=== PATIENT | male | born 1975 | race Caucasian/White ===

== ENCOUNTER → 2017-09-07 | Outpatient (CLI) | payer BC ==
--- NOTE | 2017-09-07 18:50 | CONS ---
CONSULTATION DATE OF SERVICE: 09/07/2017 A 42-year-old gentleman has been evaluated in the sleep center for possible obstructive sleep apnea-hypopnea syndrome. HISTORY OF PRESENT ILLNESS AND SLEEP-WAKE EVALUATION: Patient's usual sleep schedule from 10:00 p.m. to 11:00 p.m. until he wakes up at 3:00 a.m. and then he tries to sleep again and finally he wakes up at 6:30. On the weekend, he has about the same sleep schedule. No problem with falling asleep, although has TV set in bedroom. He sleeps on the side position, does not like to sleep on the back. He has loud snoring, witnessed by his , episodes of stopped breathing during sleep. He wakes up with dry mouth, palpitations, sweating 3 times. In the morning, he wakes up tired. [place] Sleepiness Scale increased to 10. He worries about his sleep, his irritability and anxiety. PAST MEDICAL HISTORY: Positive for hypertension. ALLERGIES: PEANUTS, POSITIVE HISTORY OF AN ANAPHYLACTIC REACTION. PAST SURGICAL HISTORY: [place] tooth removed. MEDICATIONS: 1. Lisinopril. 2. Belsomra. 3. Has EpiPen. REVIEW OF SYSTEMS: Multiple awakenings from sleep, sleepiness during the day. FAMILY HISTORY: Hypertension, angina, heart problems, hyperlipidemia, asthma, bronchitis, sleep apnea, snoring, cancer, ulcers, diabetes. PHYSICAL EXAMINATION: GENERAL: A gentleman without distress. VITAL SIGNS: BP 136/84, HR 92, RR 14, height 5 feet 9-1/2 inches, weight 263.2, BMI 38.2, neck 17 inches in circumference. Temperature 97.9, oxygen saturation room air 95%. HEENT: PERRLA, EOMI, evaluation of oropharynx showed tongue protrudes midline, low position of soft palate, restriction of nasal breathing. Neck Supple, no JVD. Thyroid is not palpable. LUNGS: Clear to percussion and to auscultation. Good air exchange. No wheezing or rhonchi. HEART: S1, S2 regular. No murmurs, gallops, or rubs. ABDOMEN: Obese, soft and nontender. Bowel sounds are present. No organomegaly appreciated. EXTREMITIES: No clubbing or cyanosis. BICYCLE FITTER: Awake, alert, and oriented X3. Cranial nerves 2 to 7 intact. There is no fasciculation or atrophy. noted. No focal deficits observed. IMPRESSION: 1. Snoring, witnessed episodes of stopped breathing during sleep, low position of soft palate, excessive daytime sleepiness, wide neck, restriction of nasal breathing, obstructive sleep apnea-hypopnea syndrome. 2. Obesity, body mass index, body mass index 38.2. 3. Restriction of nasal breathing. 4. Hypertension. 5. Allergies. PLAN: 1. Home sleep apnea test for confirming obstructive sleep apnea-hypopnea syndrome. 2. Polysomnography for evaluation of patient's breathing during sleep. 3. CPAP/BiPAP titration if sleep study confirms obstructive sleep apnea-hypopnea syndrome. 4. Preferable position during sleep on the side. 5. No driving if patient feels any sleepiness. Patient is aware of civil and criminal liability for unsafe driving. 6. I will see patient for follow up visit to explain results of testing and following plan. Thank you very much for referring this patient for consultation. Sincerely, Bijan Avitia MD, PhD, FAASM Diplomat of [employer] Specialist of [facility] [place] MMODL / FRANCOISEN: [id number] /
== END | disposition home or self-care (01) ==
LOC: SLEEP 16:08
PROVIDERS: ATTEND Internal Medicine
DX: G47.33 Obstructive sleep apnea (adult) (pediatric) (principal); I10 Essential (primary) hypertension; T78.40XA Allergy, unspecified, initial encounter; E66.9 Obesity, unspecified; Z68.38 Body mass index [BMI] 38.0-38.9, adult; Z91.010 Allergy to peanuts; Z79.899 Other long term (current) drug therapy
CPT/HCPCS: 99211

== ENCOUNTER → 2018-01-12 | Outpatient (CLI) | payer BC ==
--- NOTE | 2018-01-12 17:15 | SFUN ---
SLEEP STUDY FOLLOW UP NOTE DATE OF SERVICE: 01/12/2018 42-year-old gentleman who has been followed in the Sleep Center for treatment of obstructive sleep apnea-hypopnea syndrome. I discussed results of home sleep apnea test and CPAP titration with the patient. He recently was started on treatment with CPAP and able to use it basically every night. At the beginning he had some problems related to the pressure and mask, but for the last week he does not have any significant problems. I checked his CPAP unit. CPAP pressure is 12 cm of water as it was prescribed. Ramp is automatic regimen. Patient using equipment /30 nights for more than 4 hours, which is good compliance. Average usage is 5.5 hours. Leak is 17 L/minute which is acceptable. Apnea-hypopnea index is 2.0 for the last month, which is normal range. According to the family, patient does not snore with the machine. [place] Sleepiness Scale today is 4. MEDICATIONS: Lisinopril, , vitamin fish oil. PHYSICAL EXAM: GENERAL Patient in no distress. VITAL SIGNS BP 134/88, HR 86, RR 18, weight 277.8, temp 97.0, oxygen saturation room air 97%. HEENT PERRLA, EOMI, evaluation of oropharynx showed moderately low position of soft palate. NECK Supple, no JVD. Thyroid is not palpable. LUNGS Clear to percussion and to auscultation. Good air exchange. No wheezing or rhonchi. HEART S1, S2 regular. No murmurs, gallops, or rubs. ABDOMEN Obese. Soft and nontender. Bowel sounds are present. No organomegaly appreciated. EXTREMITIES No clubbing or cyanosis. PSYCHIATRIC RN Awake, alert, and oriented X3. Cranial nerves 2 to 7 intact. There is no fasciculation or atrophy. noted. No focal deficits observed. IMPRESSION: 1. Obstructive sleep apnea-hypopnea syndrome. Patient demonstrated great compliance with treatment benefitting from treatment. 2. Obesity. 3. Hypertension. 4. Allergy. 5. Some restriction of nasal breathing. PLAN: 1. Continue treatment with CPAP every night for the whole night. 2. Watching and losing weight. 3. Sleep hygiene with regular time in bed for 7-1/2 hours. 4. No driving if feeling sleepiness. 5. Follow-up visit in 10 months or earlier if patient has any problems. Thank you very much for allowing me to participate in management of your patient. Sincerely, Bijan Avitia MD, PhD, FAASM Diplomat of [employer] Hand of [facility] [place] MMMIAN / SANDY: [id number] /
== END | disposition home or self-care (01) ==
LOC: SLEEP 15:50
PROVIDERS: ATTEND Internal Medicine
DX: G47.33 Obstructive sleep apnea (adult) (pediatric) (principal); E66.9 Obesity, unspecified; I10 Essential (primary) hypertension; T78.40XA Allergy, unspecified, initial encounter; Z79.899 Other long term (current) drug therapy

== ENCOUNTER → 2019-06-22 | Outpatient (CLI) | payer BC ==
--- NOTE | 2019-06-22 13:39 | ECHOS ---
STRESS ECHOCARDIOGRAM DATE OF SERVICE: 06/22/2019 INDICATIONS: Chest pain. MEDICATIONS: BASELINE HEART RATE: 100 BASELINE BLOOD PRESSURE: 118/70 MAXIMUM HEART RATE: 169 MAXIMUM BLOOD PRESSURE: 178/85 85% MPHR: 149 100% MPHR: 175 METS: 10 MAXIMUM STAGE REACHED: III TOTAL EXERCISE TIME: 9 minutes CLINICAL INFORMATION: Baseline EKG shows sinus rhythm, normal axis, normal intervals. Patient exercised on Freddie protocol for a total of 9 minutes achieving, 10 METs, 96% of predicted maximal heart rate without chest pain or diagnostic ST-segment depression. Baseline echo is technically suboptimal. Endocardial visualization was enhanced by injecting the contrast. Left ventricular size, wall motion and systolic function are normal. Post dobutamine infusion again patient received the contrast and there is normal hyperdynamic response of all segments of myocardium noted. CONCLUSIONS: 1. Good exercise tolerance. 2. Negative stress test by EKG criteria. 3. Negative stress echo. MMODL / IJN: [id number] /
== END | disposition home or self-care (01) ==
LOC: RADNMMAIN 09:46
PROVIDERS: ATTEND Family Medicine
DX: R07.9 Chest pain, unspecified (principal)
CPT/HCPCS: 93351; Q9950

== ENCOUNTER → 2019-08-24 | Outpatient (CLI) | payer BC ==
--- NOTE | 2019-08-24 08:03 | US ---
EXAMINATION TYPE: US abdomen limited DATE OF EXAM: 08/24/2019 COMPARISON: NONE CLINICAL HISTORY: R94.5 Abnormal results of liver function studies. EXAM MEASUREMENTS: Liver Length: 14.8 cm Gallbladder Wall: 0.3 cm CBD: 0.4 cm Right Kidney: 11.5 x 5.9 x 5.1 cm Technically difficult study due to midline bowel gas and body habitus. Pancreas: not well visualized due to midline bowel gas Liver: difficult to visualize, loss of vascular landmarks Gallbladder: No stones seen Evidence for sonographic Noriega's sign: No CBD: wnl Right Kidney: No hydronephrosis or masses seen Visualized pancreas is heterogeneous. Visualized liver is markedly heterogeneously hyperechoic. No ramirez rrounding ascites. Evaluation for focal masses suboptimal due to the heterogeneity. Gallbladder is se en without shadowing mobile gallstones. Limited images right kidney show no gross hydronephrosis. IMPRESSION: Markedly heterogeneous hyperechoic appearance of liver could reflect product of diffuse f atty infiltration and/or underlying hepatocellular disease. Imaging guided random biopsy for tissue a nalysis can be performed if desired.
== END ==
LOC: RADUSWWP 07:30
PROVIDERS: ATTEND Family Medicine
DX: R94.5 Abnormal results of liver function studies (principal)
CPT/HCPCS: 76705

== ENCOUNTER 2022-07-28 06:45 | Day surgery (SDC) | payer BC ==
[2022-07-26 11:22] VITALS: BMI 38.4
[~2022-07-28 06:45] MED LIST: LACTATED RINGERS 1,000 ML IV SCH; LIDOCAINE 1% (10MG/ML) FOR IV START INTRADERMA PRN
[2022-07-28 07:16] VITALS: TEMP 97.6
[2022-07-28 07:23] LABS: Glucose,Whole Blood 142 mg/dL (70-110)
[2022-07-28] MEDS ORDERED: MIDAZOLAM 2 MG/2 ML VIAL ONE (07:30)
[2022-07-28] MEDS ORDERED: fentaNYL (PF) 50 MCG/ML 50 ML VIAL ONE (07:30)
[2022-07-28] MEDS ORDERED: PROPOFOL 10 MG/ML 20 ML VIAL IV ONE (07:30)
[2022-07-28] MEDS ORDERED: LIDOCAINE 2% INJ 20 MG/ML (2 ML VIAL) ONE (07:30)
--- NOTE | 2022-07-28 07:36 | P.GSHP ---
History of Present Illness H&P Date: 07/28/22 CHIEF COMPLAINT: Colon screen HISTORY OF PRESENT ILLNESS: The patient is a 47-year-old male who presents for colon screen. Lower endoscopy was offered for further evaluation and management. PAST MEDICAL HISTORY: Please see list. PAST SURGICAL HISTORY: Please see list. MEDICATIONS: Please see list. ALLERGIES: Please see list. SOCIAL HISTORY: No illicit drug use FAMILY HISTORY: No reports of Crohn disease or ulcerative colitis. REVIEW OF ORGAN SYSTEMS: CONSTITUTIONAL: No reports of fevers or chills. PHYSICAL EXAM: VITAL SIGNS: Stable GENERAL: Well-developed pleasant in no acute distress. HEENT: No scleral icterus. Extraocular movements grossly intact. Moist buccal mucosa. NECK: Supple without lymphadenopathy. CHEST: Unlabored respirations. Equal bilateral excursions. CARDIOVASCULAR: Regular rate and rhythm. Distal 2+ pulses. ABDOMEN: Soft, nontender, nondistended. MUSCULOSKELETAL: No clubbing, cyanosis, or edema. ASSESSMENT: 1. Colon screen. PLAN: 1. Recommend proceeding with a lower endoscopy Past Medical History Past Medical History: Diabetes Mellitus, Hyperlipidemia, Hypertension History of Any Multi-Drug Resistant Organisms: None Reported Past Surgical History: No Surgical Hx Reported Additional Past Surgical History / Comment(s): wisdom teeth Past Anesthesia/Blood Transfusion Reactions: No Reported Reaction Additional Past Anesthesia/Blood Transfusion Reaction / Comment(s): no hx general anesthesia Smoking Status: Never smoker - Past Family History Mother Family Medical History: COPD, Pulmonary Embolus Father Family Medical History: Cancer Additional Family Medical History / Comment(s): skin CA Medications and Allergies Home Medications Medication Instructions Recorded Confirmed Type Lisinopril-Hctz 10-12.5 mg 1 tab PO DAILY 09/06/19 07/28/22 History [Zestoretic 10-12.5] Sertraline [Zoloft] 50 mg PO QAM 09/06/19 07/28/22 History metFORMIN HCL [Glucophage] 1,000 mg PO BID 09/06/19 07/28/22 History Cetirizine HCl [Zyrtec] 10 mg PO DAILY 07/26/22 07/28/22 History Empagliflozin [Jardiance] 10 mg PO DAILY 07/26/22 07/28/22 History Allergies Allergy/AdvReac Type Severity Reaction Status Date / Time Penicillins AdvReac Rash/Hives Verified 07/28/22 07:11 Surgical - Exam Vital Signs Temp Pulse Resp BP Pulse Ox 97.6 F 81 18 154/82 97 07/28/22 07:06 07/28/22 07:06 07/28/22 07:06 07/28/22 07:06 07/28/22 07:06 Results - Labs Abnormal Lab Results - Last 24 Hours (Table) 07/28/22 Range/Units 07:20 POC Glucose (mg/dL) 142 H (70-110) mg/dL
[2022-07-28] MEDS ORDERED: LACTATED RINGERS 1,000 ML IV ONE (07:56)
[2022-07-28 07:59] VITALS: RESP 16
--- NOTE | 2022-07-28 08:02 | P.PCN ---
Date of Procedure: 07/28/22 Description of Procedure: PREOPERATIVE DIAGNOSIS: Family history malignant colon polyps Colonoscopy screening POSTOPERATIVE DIAGNOSIS: Family history malignant colon polyps Colonoscopy screening Tubular adenoma sigmoid colon Tubular adenoma transverse colon OPERATION: Colonoscopy to the ileocecal valve and appendiceal orifice, cecum Colonoscopy with hot snare polypectomy Colonoscopy with cold forceps biopsy SURGEON: Xin Garcia MD. ANESTHESIA: MAC. INDICATIONS: The patient is an 47-year-old male who presents family history of malignant colon polyps and history of colonoscopy screening. Benefits and risks were described and informed consent was obtained. DESCRIPTION OF PROCEDURE: The patient had undergone Sutab prep. The patient had been brought into the operating room and laid in the left lateral decubitus position. After adequate intravenous sedation, the rectum was examined with 2% lidocaine jelly. The prostate was unremarkable. External hemorrhoids were encountered. The rectal tone was within normal limits. No lesions were palpated in the rectal vault. An Olympus colonoscope was advanced until the cecum, ileocecal valve and appendiceal orifice were clearly viewed. The prep was excellent. No sigmoid diverticulosis was encountered. Colonic polyps were found and removed. No evidence of focal colitis was found. Retroflexion of the scope demonstrated grade 2 internal hemorrhoids without active bleeding or inflammation. The colon was desufflated. The patient had tolerated the procedure well. Withdrawal time was over 6 minutes. FINDINGS: Aron[place]ick preparation quality scale 1 (1-5) Internal hemorrhoids, grade 2 External hemorrhoids, grade 2. No arteriovenous malformations. No sigmoid diverticulosis Removal of 2 polyps: - Snare polypectomy 20 cm from the anal verge, 5 mm tubulovillous adenoma polyp, sigmoid colon. - Snare polypectomy proximal transverse colon, 8 mm flat villous adenoma polyp. No focal colitis. RECOMMENDATIONS: Repeat colonoscopy in 3 years, 2024 Plan - Discharge Summary Discharge Rx Participant: No New Discharge Prescriptions: Continue Lisinopril-Hctz 10-12.5 mg [Zestoretic 10-12.5] 1 tab PO DAILY metFORMIN HCL [Glucophage] 1,000 mg PO BID Sertraline [Zoloft] 50 mg PO QAM Cetirizine HCl [Zyrtec] 10 mg PO DAILY Empagliflozin [Jardiance] 10 mg PO DAILY Discharge Medication List Lisinopril-Hctz 10-12.5 mg [Zestoretic 10-12.5] 1 tab PO DAILY 09/06/19 [History] Sertraline [Zoloft] 50 mg PO QAM 09/06/19 [History] metFORMIN HCL [Glucophage] 1,000 mg PO BID 09/06/19 [History] Cetirizine HCl [Zyrtec] 10 mg PO DAILY 07/26/22 [History] Empagliflozin [Jardiance] 10 mg PO DAILY 07/26/22 [History] Follow up Appointment(s)/Referral(s): Xin Garcia MD [STAFF PHYSICIAN] - As Needed Patient Instructions/Handouts: *Surgery [facility] - (Anesthesia) Endoscopy Discharge Instructions, Colorectal Polyps (GEN) Activity/Diet/Wound Care/Special Instructions: Repeat colonoscopy 3 years, 2024 Discharge Disposition: HOME SELF-CARE
[2022-07-28 08:21] VITALS: BP 132/83; PULSE 83
== END 2022-07-28 08:44 | disposition home or self-care (01) ==
LOC: ORWHC2ENDO 06:45
PROVIDERS: ATTEND Surgery Plastic and Reconstructive Surgery
DX: Z12.11 Encounter for screening for malignant neoplasm of colon (principal); D12.5 Benign neoplasm of sigmoid colon; D12.3 Benign neoplasm of transverse colon; K64.1 Second degree hemorrhoids; K64.4 Residual hemorrhoidal skin tags; Z83.71 Family history of colonic polyps; E11.9 Type 2 diabetes mellitus without complications; E78.5 Hyperlipidemia, unspecified; I10 Essential (primary) hypertension; F41.9 Anxiety disorder, unspecified; Z79.899 Other long term (current) drug therapy; Z79.84 Long term (current) use of oral hypoglycemic drugs; Z88.0 Allergy status to penicillin; Z82.5 Family history of asthma and other chronic lower respiratory diseases; Z82.49 Family history of ischemic heart disease and other diseases of the circulatory system; Z80.8 Family history of malignant neoplasm of other organs or systems
CPT/HCPCS: 88305; 45385; J2250; J3010; J2704; J2001

== ENCOUNTER 2024-06-17 16:59 | Emergency (ER) | payer OTHER ==
[2024-06-17] MEDS ORDERED: methylPREDNISolone SOD SUCCI 125 MG/2 ML VIAL ONE (19:25)
[2024-06-17] MEDS ORDERED: FAMOTIDINE 20 MG/2 ML VIAL ONE (19:25)
== END 2024-06-17 19:40 | disposition home or self-care (01) ==
LOC: EC 16:59
DX: T78.40XA Allergy, unspecified, initial encounter (principal)
CPT/HCPCS: 93005; 96374; 96375; 99283